=== PATIENT | female | born 2000 | race Caucasian/White ===

== ENCOUNTER 2022-12-02 15:06 | Emergency (ER) | payer SELFPAY ==
[2022-12-02] MEDS ORDERED: methylPREDNISolone Sod Succ/PF 125 MG/2 ML VIAL ONE (16:03)
== END 2022-12-02 16:33 | disposition home or self-care (01) ==
LOC: ERS 15:06
DX: T78.40XA Allergy, unspecified, initial encounter (principal)
CPT/HCPCS: 96372; 99284; J2930